=== PATIENT | male | born 1950 | race Caucasian/White ===

== ENCOUNTER 2019-03-08 01:00 | Inpatient (IN) ==
[2019-03-08] MEDS ORDERED: 0.9 % Sodium Chloride 1,000 ML IVC ONE ×3 (01:33→04:02)
[2019-03-08] MEDS ORDERED: Ondansetron 4 MG/2 ML VIAL IVP ONE (02:02)
[2019-03-08] MEDS ORDERED: *HR* Morphine 2 MG/ML SYRINGE IVP ONE (02:02)
--- NOTE | 2019-03-08 02:02 | Emergency Department Note ---
Disposition Clinical Impression: Cellulitis Qualifiers: Site of cellulitis: trunk Site of cellulitis of trunk: chest wall Qualified Code(s): L03.313 - Cellulitis of chest wall Sepsis Qualifiers: Sepsis type: sepsis due to unspecified organism Qualified Code(s): A41.9 - Sepsis, unspecified organism Disposition: Admitted As Inpatient Condition: Fair Referrals: Samantha Conti MD [Primary Care Provider] - Forms: ED Satisfaction Letter Time of Disposition: 04:25 General Adult HPI - General Stated complaint: Fever/Vomiting Time Seen by Provider: 03/08/19 01:06 Source: patient, family Mode of arrival: private vehicle Limitations: no limitations Nursing Notes Reviewed: Yes Vital Signs Reviewed: Yes - History of Present Illness HPI Narrative: 68-year-old male with a past medical history of Waldenstroms macroglobulinemia diagnosed 5 years prior and treated with chemotherapy at that time, with a recent flare in October of this year treated with chemotherapy, with his last session 12 days ago. Patient developed fever, nausea diarrhea approximately 8 PM on March 07. at bedside reports that his temperature was as high as 103 taken orally, weight states that she gave him 3 Tylenol. She states the Tylenol did not seem to affect his fever so they brought him into the department for further evaluation. Patient also had a skin growth removed from the front of his chest yesterday, Thursday, and he has been having a lot of pain associated with the incision site since then. - Related Data Home Medications Medication Instructions Recorded Confirmed Mometasone Furoate [Nasonex] 17 gm NS PRN PRN 11/14/15 02/23/19 Quinapril HCl [Accupril] 10 mg PO DAILY 11/14/15 02/23/19 Ranitidine HCl [Zantac] 150 mg PO DAILY 11/14/15 02/23/19 Ergocalciferol (VITAMIN D2) 2,000 unit PO BID 09/13/18 02/23/19 [Vitamin D2] Previous Rx's Medication Instructions Recorded Cyanocobalamin (B-12) [Vitamin B12] 1,000 mcg PO DAILY #30 tablet 01/16/16 Albuterol Sulfate [Proair Hfa] 2 puff IH QID #1 inh 10/19/17 Loperamide [Imodium] 2 mg PO AD PRN #30 capsule 11/10/18 Ondansetron ODT [Zofran ODT] 4 mg SL Q6HR #20 tab.rapdis 11/10/18 Allergies Allergy/AdvReac Type Severity Reaction Status Date / Time egg Allergy Difficulty Verified 03/08/19 01:52 Breathing iodine Allergy Difficulty Verified 03/08/19 01:52 Breathing Review of Systems: All systems ED: reviewed and negative except as stated. Constitutional: Reports: fever, chills ENT ED: Denies: ear pain, throat pain Cardiovascular: Denies: chest pain, palpitations Respiratory: Denies: cough, dyspnea Gastrointestinal: Denies: abdominal pain, vomiting, constipation Reports: nausea, diarrhea Genitourinary: Denies: urgency, dysuria, frequency Musculoskeletal: Denies: back pain, neck pain Integumentary: Denies: rash, abrasion Neurological: Denies: headache, weakness, numbness, paresthesias Psychiatric: Denies: anxiety, depression Endocrine: Denies: fatigue, heat or cold intolerance Hematological/Lymphatic: Denies: easy bleeding, easy bruising Allergic/Immunologic: Denies: facial swelling, urticaria Past Medical History - Past Medical History Attestation: Yes The following information was validated with the patient. Medical history: Reports: arthritis, cancer, diabetes, GERD, hypertension Surgical history: Reports: orthopedic, other Psychiatric history: Reports: no psych history - Social History Smoking Status: Former smoker Smokeless Tobacco Status: No Alcohol use: Reports: none Drug use: Reports: none Physical Exam General: A&O x 3. Appears sick but not toxic. Well developed, well nourished. Head: atraumatic, normocephalic. ENT: No conjunctival injection, no scleral icterus. PERRLA. EOMI. Oropharynx non- erythematous. mucous membranes tacky. Neuro: No focal deficits, no speech deficit, no facial droop, mentating well. BUE/BLE Str 5/5. Pulm: Diminished lung sounds on the left, clear otherwise. Cardio: Tachycardia. Chest: 4 inch surgical scar with erythema, serosanguinous drainage, tender to pa lpation. Abd: Soft, non-distended. Normoactive bowel sounds. Tender to palpation in epigastric area. No guarding. Non rigid. Extremities: Radial pulses 2+ todd, dorsalis pedis/posterior tibialis 2+ todd. No LE edema. No cyanosis, clubbing. Skin: hot, dry, intact. No rashes. Psych: Appropriate mood and affect. Answers questions appropriately. Cooperative with exam. Course Course Narrative: Differential diagnosis includes but is not limited to post surgical infection, pneumonia, colitis Workup will include: CBC, BMP, lactic acid, blood cultures, chest x-ray, EKG, CT of the chest abdomen and pelvis. Suspect admission. Vital Signs Temperature 102.6 F H 03/08/19 01:53 Pulse Rate 128 03/08/19 01:53 Respiratory Rate 24 03/08/19 01:53 Blood Pressure 124/74 03/08/19 01:53 O2 Sat by Pulse Oximetry 95 03/08/19 01:53 Temperature 102.6 F H 03/08/19 01:53 Pulse Rate 118 03/08/19 04:13 Respiratory Rate 18 03/08/19 04:13 Blood Pressure 91/60 03/08/19 04:13 O2 Sat by Pulse Oximetry 96 03/08/19 04:13 Oxygen Delivery Oxygen Delivery Room Air Medical Decision Making - MDM Narrative Medical decision making narrative: Patient's chest CT was concerning for chest wall cellulitis, white blood cell count was not elevated, however with history of recent chemotherapy, this does not rule out infection. Lactic acid was 1.0. Phosphorus was low at 1.0, so was repleted with Neutra-Phos while in the department. Patient was given Zosyn and vancomycin. He was given 2 L of fluids but his blood pressure remained labile so he was given a third liter. Patient was admitted to the hospitalist Dr. Ortiz, who agreed to accept the patient to his service. Patient was given an opportunity to ask questions at bedside and all of their concerns were addres sed. Patient verbalized understanding and agreement with plan of care. Pt remained stable while in the department. - Medical Records Medical records reviewed: Yes I reviewed the patient's medical records. - Lab Data Lab results reviewed: Yes I reviewed the patient's lab results. Result diagrams: 03/08/19 01:59 03/08/19 01:59 Lab Results 03/08/19 03/08/19 03/08/19 Range/Units 01:59 01:59 01:59 WBC 4.5 (4.3-11.1) K/mcL RBC 3.72 L (4.19-5.50) M/mcL Hgb 11.3 L (12.9-16.9) g/dL Hct 34.9 L (37.5-50.1) % MCV 93.8 (83.0-100.0) fL MCH 30.4 (28.0-33.3) pg MCHC 32.4 (31.6-35.5) g/dL RDW 14.2 (11.5-14.5) % Plt Count 129 L (140-400) K/mcL MPV 9.3 L (9.4-12.4) fL Seg Neutrophils % 84.0 % Band Neutrophils % 8.0 H (0-4) % Lymphocytes % 2.0 % Monocytes % 6.0 % Neutrophils # 4.1 (1.6-8.9) K/mcL Lymphocytes # 0.1 L (0.6-4.6) K/mcL Monocytes # 0.3 (0.0-1.3) K/mcL Platelet Estimate Decreased L (Normal) PT 12.3 H (9.4-12.1) Seconds INR 1.1 APTT 30.2 (26.0-36.0) Seconds Sodium 137 (136-145) mEq/L Potassium 3.9 (3.5-5.1) mEq/L Chloride 102 (98-107) mEq/L Carbon Dioxide 22 L (23-29) mEq/L BUN 32 H (8-23) mg/dL Creatinine 1.36 H (0.70-1.30) mg/dL Est GFR ( Amer) > 60 (> 60) Est GFR (Non-Af Amer) 52 L (> 60) BUN/Creatinine Ratio 24 (6-26) Glucose 143 H (70-105) mg/dL Calculated Osmolality 293 (280-300) Lactic Acid (0.5-2.2) mmol/L Calcium 9.0 (8.6-10.3) mg/dL Phosphorus 1.0 L* (2.7-4.5) mg/dL Magnesium 1.7 (1.6-2.6) mg/dL Total Bilirubin 0.5 (0.3-1.0) mg/dL Direct Bilirubin 0.1 (0.0-0.2) mg/dL Indirect Bilirubin 0.4 (0.0-1.2) mg/dL AST 34 (13-39) Units/L ALT 39 (7-52) Units/L Alkaline Phosphatase 75 (34-104) Units/L Troponin I < 0.03 (< 0.04) ng/mL Serum Total Protein 6.5 (6.4-8.9) g/dL Albumin 4.1 (3.5-5.7) g/dL Globulin 2.4 (2.4-3.5) g/dL Albumin/Globulin Ratio 1.7 (1.1-2.2) Lipase 25 (11-82) Units/L 03/08/19 Range/Units 01:59 WBC (4.3-11.1) K/mcL RBC (4.19-5.50) M/mcL Hgb (12.9-16.9) g/dL Hct (37.5-50.1) % MCV (83.0-100.0) fL MCH (28.0-33.3) pg MCHC (31.6-35.5) g/dL RDW (11.5-14.5) % Plt Count (140-400) K/mcL MPV (9.4-12.4) fL Seg Neutrophils % % Band Neutrophils % (0-4) % Lymphocytes % % Monocytes % % Neutrophils # (1.6-8.9) K/mcL Lymphocytes # (0.6-4.6) K/mcL Monocytes # (0.0-1.3) K/mcL Platelet Estimate (Normal) PT (9.4-12.1) Seconds INR APTT (26.0-36.0) Seconds Sodium (136-145) mEq/L Potassium (3.5-5.1) mEq/L Chloride (98-107) mEq/L Carbon Dioxide (23-29) mEq/L BUN (8-23) mg/dL Creatinine (0.70-1.30) mg/dL Est GFR ( Amer) (> 60) Est GFR (Non-Af Amer) (> 60) BUN/Creatinine Ratio (6-26) Glucose (70-105) mg/dL Calculated Osmolality (280-300) Lactic Acid 1.0 (0.5-2.2) mmol/L Calcium (8.6-10.3) mg/dL Phosphorus (2.7-4.5) mg/dL Magnesium (1.6-2.6) mg/dL Total Bilirubin (0.3-1.0) mg/dL Direct Bilirubin (0.0-0.2) mg/dL Indirect Bilirubin (0.0-1.2) mg/dL AST (13-39) Units/L ALT (7-52) Units/L Alkaline Phosphatase (34-104) Units/L Troponin I (< 0.04) ng/mL Serum Total Protein (6.4-8.9) g/dL Albumin (3.5-5.7) g/dL Globulin (2.4-3.5) g/dL Albumin/Globulin Ratio (1.1-2.2) Lipase (11-82) Units/L - Radiology Data Radiology results reviewed: Yes I reviewed the patient's radiology results. Chest X-Ray 03/08/19 01:34 IMPRESSION: No acute cardiopulmonary process. D/ / Moises Muller MD / Moises Muller MD Interpreting Provider: Moises Muller MD Abdomen/Pelvis CT 03/08/19 02:09 IMPRESSION: Mild soft tissue stranding and gas along the anterior chest wall. No drainable fluid collection. No acute cardiopulmonary findings. Decreased periaortic and aortoiliac lymphadenopathy and inflammatory stranding. Cholelithiasis without evidence of acute cholecystitis. D/ / Preet Iyer / Preet Iyer Interpreting Provider: Preet Iyer Chest CT 03/08/19 02:09 IMPRESSION: Mild soft tissue stranding and gas along the anterior chest wall. No drainable fluid collection. No acute cardiopulmonary findings. Decreased periaortic and aortoiliac lymphadenopathy and inflammatory stranding. Cholelithiasis without evidence of acute cholecystitis. D/ / Preet Iyer / Preet Iyer Interpreting Provider: Preet Iyer - EKG Data EKG #1 EKG attestation: Yes I reviewed and interpreted this EKG. EKG results narrative: Heart rate 127, rhythm sinus tachycardia, axis normal. NV 152, QRS 102, QTC 6:30 and prolonged. No clinically relevant ST elevation or depression. Repeat EKG at 421: Heart rate 118, rhythm sinus tachycardia, axis normal. NV 187 and prolonged, QRS 100, QTc 526 and prolonged, but improved from previous. No clinically significant ST elevation or depression. No LVH.
[2019-03-08] MEDS ORDERED: Piperacillin/Tazobactam 3.375 GM in Water for inj. (sterile) 20 ML 20 ML IVP ONE (02:05)
[2019-03-08] MEDS ORDERED: Ibuprofen 600 MG TABLET PO ONE (02:10)
[2019-03-08 02:14] LABS: Hematocrit 34.9 % (37.5-50.1); Hemoglobin 11.3 g/dL (12.9-16.9); Mean Corpuscular HGB Conc 32.4 g/dL (31.6-35.5); Mean Corpuscular Hemoglobin 30.4 pg (28.0-33.3); Mean Corpuscular Volume 93.8 fL (83.0-100.0); Mean Platelet Volume 9.3 fL (9.4-12.4); Platelet Count 129 K/mcL (140-400); Red Blood Count 3.72 M/mcL (4.19-5.50); Red Cell Distribution Width 14.2 % (11.5-14.5)
[2019-03-08 02:21] LABS: INR 1.1; Prothrombin Time 12.3 Seconds (9.4-12.1)
[2019-03-08 02:24] LABS: Activated Partial Thrombo Time 30.2 Seconds (26.0-36.0)
[2019-03-08 02:42] LABS: Alanine Aminotransferase 39 Units/L (7-52); Albumin 4.1 g/dL (3.5-5.7); Albumin/Globulin Ratio 1.7 (1.1-2.2); Alkaline Phosphatase 75 Units/L (34-104); Aspartate Amino Transferase 34 Units/L (13-39); BUN/Creatinine Ratio 24 (6-26); Bilirubin,Direct 0.1 mg/dL (0.0-0.2); Bilirubin,Indirect 0.4 mg/dL (0.0-1.2); Bilirubin,Total 0.5 mg/dL (0.3-1.0); Blood Urea Nitrogen 32 mg/dL (8-23); Carbon Dioxide 22 mEq/L (23-29); Chloride 102 mEq/L (98-107); Globulin 2.4 g/dL (2.4-3.5); Glucose 143 mg/dL (70-105); Lipase 25 Units/L (11-82); Magnesium 1.7 mg/dL (1.6-2.6); Osmolality,Calculated 293 (280-300); Potassium 3.9 mEq/L (3.5-5.1); Sodium 137 mEq/L (136-145); Total Protein 6.5 g/dL (6.4-8.9); Troponin I < 0.03 ng/mL (< 0.04); eGFR For Non-African Americans 52 (> 60)
[2019-03-08 02:47] LABS: Lymphocytes # 0.1 K/mcL (0.6-4.6); Monocytes # 0.3 K/mcL (0.0-1.3); Neutrophils # 4.1 K/mcL (1.6-8.9); Platelet Estimate Decreased (Normal)
--- NOTE | 2019-03-08 03:29 | Emergency Department Note ---
Disposition Clinical Impression: Cellulitis Qualifiers: Site of cellulitis: trunk Site of cellulitis of trunk: chest wall Qualified Code(s): L03.313 - Cellulitis of chest wall Sepsis Qualifiers: Sepsis type: sepsis due to unspecified organism Qualified Code(s): A41.9 - Sepsis, unspecified organism Disposition: Admitted As Inpatient Condition: Good Referrals: Samantha Conti MD [Primary Care Provider] - General Adult HPI - General Chief complaint: ED Fever Stated complaint: Fever/Vomiting Time Seen by Provider: 03/08/19 01:06 Source: patient, family Mode of arrival: private vehicle Limitations: no limitations - History of Present Illness Pain Scale: 6 - Related Data Home Medications Medication Instructions Recorded Confirmed Mometasone Furoate [Nasonex] 17 gm NS PRN PRN 11/14/15 02/23/19 Quinapril HCl [Accupril] 10 mg PO DAILY 11/14/15 02/23/19 Ranitidine HCl [Zantac] 150 mg PO DAILY 11/14/15 02/23/19 Ergocalciferol (VITAMIN D2) 2,000 unit PO BID 09/13/18 02/23/19 [Vitamin D2] Previous Rx's Medication Instructions Recorded Cyanocobalamin (B-12) [Vitamin B12] 1,000 mcg PO DAILY #30 tablet 01/16/16 Albuterol Sulfate [Proair Hfa] 2 puff IH QID #1 inh 10/19/17 Loperamide [Imodium] 2 mg PO AD PRN #30 capsule 11/10/18 Ondansetron ODT [Zofran ODT] 4 mg SL Q6HR #20 tab.rapdis 11/10/18 Allergies Allergy/AdvReac Type Severity Reaction Status Date / Time egg Allergy Difficulty Verified 03/08/19 01:52 Breathing iodine Allergy Difficulty Verified 03/08/19 01:52 Breathing Past Medical History - Past Medical History Medical history: Reports: arthritis, cancer, diabetes, GERD, hypertension Surgical history: Reports: orthopedic, other Psychiatric history: Reports: no psych history - Social History Smoking Status: Former smoker Smokeless Tobacco Status: No Alcohol use: Reports: none Drug use: Reports: none Physical Exam - General Limitations: no limitations General appearance: alert Course Vital Signs Temperature 102.6 F H 03/08/19 01:53 Pulse Rate 128 03/08/19 01:53 Respiratory Rate 24 03/08/19 01:53 Blood Pressure 124/74 03/08/19 01:53 O2 Sat by Pulse Oximetry 95 03/08/19 01:53 Temperature 102.6 F H 03/08/19 01:53 Pulse Rate 120 03/08/19 03:06 Respiratory Rate 18 03/08/19 03:06 Blood Pressure 108/64 03/08/19 03:06 O2 Sat by Pulse Oximetry 97 03/08/19 03:06 Oxygen Delivery Oxygen Delivery Room Air Medical Decision Making - Lab Data Result diagrams: 03/08/19 01:59 03/08/19 01:59 Lab Results 03/08/19 03/08/19 03/08/19 Range/Units 01:59 01:59 01:59 WBC 4.5 (4.3-11.1) K/mcL RBC 3.72 L (4.19-5.50) M/mcL Hgb 11.3 L (12.9-16.9) g/dL Hct 34.9 L (37.5-50.1) % MCV 93.8 (83.0-100.0) fL MCH 30.4 (28.0-33.3) pg MCHC 32.4 (31.6-35.5) g/dL RDW 14.2 (11.5-14.5) % Plt Count 129 L (140-400) K/mcL MPV 9.3 L (9.4-12.4) fL Seg Neutrophils % 84.0 % Band Neutrophils % 8.0 H (0-4) % Lymphocytes % 2.0 % Monocytes % 6.0 % Neutrophils # 4.1 (1.6-8.9) K/mcL Lymphocytes # 0.1 L (0.6-4.6) K/mcL Monocytes # 0.3 (0.0-1.3) K/mcL Platelet Estimate Decreased L (Normal) PT 12.3 H (9.4-12.1) Seconds INR 1.1 APTT 30.2 (26.0-36.0) Seconds Sodium 137 (136-145) mEq/L Potassium 3.9 (3.5-5.1) mEq/L Chloride 102 (98-107) mEq/L Carbon Dioxide 22 L (23-29) mEq/L BUN 32 H (8-23) mg/dL Creatinine 1.36 H (0.70-1.30) mg/dL Est GFR ( Amer) > 60 (> 60) Est GFR (Non-Af Amer) 52 L (> 60) BUN/Creatinine Ratio 24 (6-26) Glucose 143 H (70-105) mg/dL Calculated Osmolality 293 (280-300) Lactic Acid (0.5-2.2) mmol/L Calcium 9.0 (8.6-10.3) mg/dL Phosphorus 1.0 L* (2.7-4.5) mg/dL Magnesium 1.7 (1.6-2.6) mg/dL Total Bilirubin 0.5 (0.3-1.0) mg/dL Direct Bilirubin 0.1 (0.0-0.2) mg/dL Indirect Bilirubin 0.4 (0.0-1.2) mg/dL AST 34 (13-39) Units/L ALT 39 (7-52) Units/L Alkaline Phosphatase 75 (34-104) Units/L Troponin I < 0.03 (< 0.04) ng/mL Serum Total Protein 6.5 (6.4-8.9) g/dL Albumin 4.1 (3.5-5.7) g/dL Globulin 2.4 (2.4-3.5) g/dL Albumin/Globulin Ratio 1.7 (1.1-2.2) Lipase 25 (11-82) Units/L 03/08/19 Range/Units 01:59 WBC (4.3-11.1) K/mcL RBC (4.19-5.50) M/mcL Hgb (12.9-16.9) g/dL Hct (37.5-50.1) % MCV (83.0-100.0) fL MCH (28.0-33.3) pg MCHC (31.6-35.5) g/dL RDW (11.5-14.5) % Plt Count (140-400) K/mcL MPV (9.4-12.4) fL Seg Neutrophils % % Band Neutrophils % (0-4) % Lymphocytes % % Monocytes % % Neutrophils # (1.6-8.9) K/mcL Lymphocytes # (0.6-4.6) K/mcL Monocytes # (0.0-1.3) K/mcL Platelet Estimate (Normal) PT (9.4-12.1) Seconds INR APTT (26.0-36.0) Seconds Sodium (136-145) mEq/L Potassium (3.5-5.1) mEq/L Chloride (98-107) mEq/L Carbon Dioxide (23-29) mEq/L BUN (8-23) mg/dL Creatinine (0.70-1.30) mg/dL Est GFR ( Amer) (> 60) Est GFR (Non-Af Amer) (> 60) BUN/Creatinine Ratio (6-26) Glucose (70-105) mg/dL Calculated Osmolality (280-300) Lactic Acid 1.0 (0.5-2.2) mmol/L Calcium (8.6-10.3) mg/dL Phosphorus (2.7-4.5) mg/dL Magnesium (1.6-2.6) mg/dL Total Bilirubin (0.3-1.0) mg/dL Direct Bilirubin (0.0-0.2) mg/dL Indirect Bilirubin (0.0-1.2) mg/dL AST (13-39) Units/L ALT (7-52) Units/L Alkaline Phosphatase (34-104) Units/L Troponin I (< 0.04) ng/mL Serum Total Protein (6.4-8.9) g/dL Albumin (3.5-5.7) g/dL Globulin (2.4-3.5) g/dL Albumin/Globulin Ratio (1.1-2.2) Lipase (11-82) Units/L Attestation Statement - Attestation Attestation: I examined this patient and my medical decision-making was reviewed with the Resident Physician. I agree with the documented findings, disposition and treatment plan as described except to the extent set forth below. 68 year old male presents to the eD with complaints of feer and weakness and vomitting and has been experiencing diarrhea in addition to this. He most recently had a skin lesion removed by Dr. Diallo [facility] surgeon removed it a few days ago and he also immunocomproised as he is recieeing chemo for waldenstrom macroglobunemia. Patient meets SIRS criteria and the CT scans confrims cellulitis without drainable abscess formation. We have started IVF ABX and given 30ml/kg IVF and will admit to medicine
[2019-03-08 05:14] LABS: ABG Base Excess -6 mEq/L (-2 to 3); ABG HCO3 19 mEq/L (21-27); ABG Oxygen Saturation 96 % (95-98); ABG PCO2 34 mmHg (35-45); ABG PH 7.36 pH Units (7.32-7.45); ABG PO2 86 mmHg (85-104); ABG TCO2 20 mEq/L (20-26)
--- NOTE | 2019-03-08 07:36 | Internal Med History&Physical ---
<Willie Schaefer - Last Filed: 03/08/19 10:37> Date of Encounter: 03/08/19 Time of Encounter: 07:27 Internal Medicine - H&P: HPI Chief complaint: Fever Admitted From: Emergency Dept History of present illness: Mr. 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 Patient initially had a squamous cell carcinoma skin lesion removed from his anterior chest removed in November 2018, this incision site was further resected yesterday morning by Dr. Diallo [facility] surgeon due to rapid recurrence of the lesion while on current immunotherapy. Patient reports associated pain at the incision site and developed a fever temperature 103 F after the procedure. He tried Tylenol at home without relief. Patient's final cycle of palliative chemotherapy treatment was 12 days ago. In the ED, patient met sepsis criteria with fever temp 102.6 F, tachycardia 128, respiratory rate 24, and CT chest revealed mild soft tissue stranding and gas along the anterior chest wall with no drainable fluid collection. CT abdomen/pe lvis was negative for colitis. Patient was started on broad-spectrum IV antibiotics and sepsis fluid bolus. Past Med Surg Social Fam HX - Past Medical History Medical history: arthritis, cancer, diabetes, GERD, hypertension Psychiatric history: no psych history - Past Surgical History Surgical History: orthopedic, other Additional surgical history: sinus sx, - Social History Smoking Status: Former smoker Smokeless Tobacco Status: No Alcohol use: none Drug use: none - Family History Mother Living Status: Father Living Status: Hx Family Cardiac Disorders: Yes Internal Medicine - H&P: Meds Quinapril HCl [Accupril] 10 mg PO DAILY 11/14/15 [History] Cyanocobalamin (B-12) [Vitamin B12] 1,000 mcg PO DAILY #30 tablet 01/16/16 [Rx] Ergocalciferol (VITAMIN D2) [Vitamin D2] 4,000 unit PO DAILY 09/13/18 [History] Cetirizine HCl [Zyrtec] 10 mg PO DAILY 03/08/19 [History] Fluticasone Propionate Nasal [Flonase] 2 spray NS DAILY 03/08/19 [History] Montelukast [Singulair] 10 mg PO DAILY 03/08/19 [History] Ondansetron HCl 4 mg PO Q6H PRN 03/08/19 [History] raNITIdine HCl [Ranitidine HCl] 150 mg PO BID 03/08/19 [History] Allergy/AdvReac Type Severity Reaction Status Date / Time egg Allergy Difficulty Verified 03/08/19 09:15 Breathing iodine Allergy Difficulty Verified 03/08/19 09:15 Breathing shellfish derived Allergy See Verified 03/08/19 09:15 Comments All Systems PM: A 10-system review of systems was performed and is negative for pertinent findings except as documented above in the HPI. - Constitutional Constitutional: chills, fever(s), weakness, no night sweats - EENT Eyes: no change in vision, no discharge, no pain, no photophobia Ears: no ear discharge, no ear pain, no tinnitus Nose, mouth and throat: neck pain, no dysphagia, no nasal discharge, no sore throat - Cardiovascular Cardiovascular ROS IM: chest pain (anterior chest incision site), no diaphoresis, no dyspnea, no lightheadedness, no palpitations, no syncope - Respiratory Respiratory: no cough, no dyspnea, no wheezing, no excessive phlegm production - Gastrointestinal Gastrointestinal: diarrhea, nausea, vomiting, no abdominal pain, no hematemesis, no hematochezia, no melena - Genitourinary Genitourinary ROS male: no urinary frequency, no urinary urgency - Musculoskeletal Musculoskeletal ROS IM: no numbness, no tingling - Integumentary Integumentary IM: erythema, new lesions - Neurological Neurological ROS: no confusion, no convulsions, no focal weakness, no numbness, no tingling, no tremor(s) - Psychiatric Psychiatric: no anxiety, no depression - Endocrine Endocrine IM: no polydipsia, no polyphagia, no polyuria - Hematologic/Lymphatic Hematologic/Lymphatic: no easy bruising - Constitutional Vitals: Temp Pulse Resp BP Pulse Ox 98.6 F 99 20 96/62 99 03/08/19 07:26 03/08/19 07:26 03/08/19 07:26 03/08/19 07:26 03/08/19 07:26 General appearance: Present: cooperative, A&O X 3, pleasant, no acute distress, answers questions appropriately Exam: awake - Head Head exam: Present: atraumatic, normocephalic - Eye Eye exam: Present: EOMI, conjuntiva pink, sclera anicteric - ENT ENT exam: Present: mucous membranes dry, normal oropharynx - Neck Neck exam general surgery: Present: supple, trachea midline. Absent: lymphadenopathy - Respiratory Respiratory exam: Present: CTAB. Absent: accessory muscle use, rales, rhonchi, wheezes - Cardiovascular Cardiovascular exam: Present: RRR, +S1, +S2. Absent: diastolic murmur, gallop, rubs, systolic murmur Additional comments: Anterior chest wall tenderness at the incision site - GI/Abdominal GI/Abdominal exam: Present: normal bowel sounds, soft, no peritoneal signs. Absent: distended, tenderness - Extremities Exam Extremities exam: Present: normal capillary refill, warm, radial pulses palpable and symmetrical. Absent: calf tenderness, cyanotic, pedal edema - Incison Incision: Present: clean and dry, intact, erythema Comments: Severe tenderness with bandage manipulation, no purulent drainage - Neurological Exam Neurological exam: Present: CN II-XII intact, oriented X3, no focal deficits. Absent: pronater drift, facial droop, speech deficit - Skin Skin exam: Present: erythema, intact Internal Med - H&P Results - Labs CBC & Chem 7: 03/08/19 09:14 03/08/19 09:14 Labs: Short CBC 03/08/19 Range/Units 01:59 WBC 4.5 (4.3-11.1) K/mcL Hgb 11.3 L (12.9-16.9) g/dL Hct 34.9 L (37.5-50.1) % Plt Count 129 L (140-400) K/mcL Neutrophils # 4.1 (1.6-8.9) K/mcL BMP 03/08/19 01:59 Sodium 137 Potassium 3.9 Chloride 102 Carbon Dioxide 22 L BUN 32 H Creatinine 1.36 H Glucose 143 H Calcium 9.0 Cardiac Enzymes 03/08/19 Range/Units 01:59 Troponin I < 0.03 (< 0.04) ng/mL Liver Function 03/08/19 Range/Units 01:59 Total Bilirubin 0.5 (0.3-1.0) mg/dL Direct Bilirubin 0.1 (0.0-0.2) mg/dL AST 34 (13-39) Units/L ALT 39 (7-52) Units/L Alkaline Phosphatase 75 (34-104) Units/L Albumin 4.1 (3.5-5.7) g/dL - ABG Interpretation ABG results: 03/08/19 05:12 ABG pH 7.36 ABG pCO2 34 L ABG pO2 86 ABG HCO3 19 L ABG Total CO2 20 ABG O2 Saturation 96 ABG Base Excess -6 L - Pulse Oximetry Interpretation Digit-Finger O2 Sat by Pulse Oximetry: 99 (On ambient air) Actions taken: none - Impressions ITS Impressions Chest X-Ray 03/08/19 01:34 IMPRESSION: No acute cardiopulmonary process. D/ / Moises Muller MD / Moises Muller MD Interpreting Provider: Moises Muller MD Abdomen/Pelvis CT 03/08/19 02:09 IMPRESSION: Mild soft tissue stranding and gas along the anterior chest wall. No drainable fluid collection. No acute cardiopulmonary findings. Decreased periaortic and aortoiliac lymphadenopathy and inflammatory stranding. Cholelithiasis without evidence of acute cholecystitis. D/ / Preet Iyer / Preet Iyer Interpreting Provider: Preet Iyer Chest CT 03/08/19 02:09 IMPRESSION: Mild soft tissue stranding and gas along the anterior chest wall. No drainable fluid collection. No acute cardiopulmonary findings. Decreased periaortic and aortoiliac lymphadenopathy and inflammatory stranding. Cholelithiasis without evidence of acute cholecystitis. D/ / Preet Iyer / Preet Iyer Interpreting Provider: Preet Iyer - Assessment and Plan (1) Sepsis Current Visit: Yes Status: Acute Assessment and plan: Patient met sepsis criteria with fever temp 102.6 F, tachycardia 128, resp iratory rate 24, and CT chest revealed mild soft tissue stranding and gas along the anterior chest wall with no drainable fluid collection. Patient is status post skin lesion resection 03/07/19. Patient complains of nausea, vomiting, diarrhea while on immunotherapy suppression. CT abdomen pelvis did not show evidence of colitis. Stool panel pending. Patient does not meet criteria for neutropenic fever (absolute neutrophil count 4140). Patient was started on broad-spectrum IV antibiotics and sepsis fluid bolus. Lactic acid level 1, repeat lactic acid 1.5 Blood cultures pending Continue broad-spectrum IV vancomycin and Zosyn De-escalate antibiotics based on culture results. Consider ID consult if patient remains febrile. Qualifiers: Sepsis type: sepsis due to unspecified organism Qualified Code(s): A41.9 - Sepsis, unspecified organism (2) Cellulitis Current Visit: Yes Status: Suspected Assessment and plan: Patient initially had a squamous cell carcinoma skin lesion removed from his anterior chest removed in November 2018, this incision site was further resected yesterday morning by tech brazer tester Dr. Jermaine Diallo, [facility] surgeon. Patient reports associated pain at the incision site and developed a fever temperature 103 F after the procedure. CT chest revealed mild soft tissue stranding and gas along the anterior chest wall with no drainable fluid collection. Case discussed with Dr. Diallo, who recommended continuing IV antibiotic therapy and will re-evaluated the patient during current hospitalization. Condition remains guarded given acute febrile reaction, sepsis, and current immunosuppression. Continue pain control. Qualifiers: Site of cellulitis: trunk Site of cellulitis of trunk: chest wall Qualified Code(s): L03.313 - Cellulitis of chest wall (3) MEG (acute kidney injury) Current Visit: Yes Status: Acute Assessment and plan: MEG likely secondary to dehydration and BARBARA inhibitor use. Hold home BARBARA inhibitor Continue IV fluids Continue monitoring. (4) Hypertension Current Visit: Yes Status: Acute Assessment and plan: Blood pressure controlled. Continue monitoring Qualifiers: Hypertension type: essential hypertension Qualified Code(s): I10 - Essential (primary) hypertension (5) Malignant lymphoplasmacytic lymphoma Current Visit: No Status: Chronic Assessment and plan: Patient is on palliative chemotherapy. Completed 4 cycles on 02/23/2019, managed by [facility], Dr. Haider. Patient does not meet criteria for neutropenic fever (absolute neutrophil count 4140). Oncology consulted. (6) Hypophosphatemia Current Visit: Yes Status: Acute Assessment and plan: Phosphorus level 1.0 --> 3.2, supplemented phosphorus Continue monitoring (7) DVT prophylaxis Current Visit: No Status: Acute Assessment and plan: Heparin subcutaneous TID (8) Diabetes mellitus type 2 in nonobese Current Visit: Yes Status: Acute Assessment and plan: Diet controlled. Hgb A1c 5.7 on 12/15/18. Continue monitoring. - Time Spent With Patient Total time spent is greater than 50% in coordination of care (as documented) at patient's floor/unit and/or counseling patient: Sepsis Reassessment Note - Evaluation Sepsis Screen: No Definite Risk Current Stage of Sepsis: sepsis Possible Source of Sepsis: unknown - Focused Exam Date of Encounter: 03/08/19 Time of Encounter: 07:15 Vital Signs: Vital Signs Temp Pulse Resp BP Pulse Ox 03/08/19 09:34 108/64 03/08/19 07:26 98.6 F 99 20 96/62 99 03/08/19 05:57 99.3 F 108 18 98/65 95 03/08/19 05:16 95 03/08/19 04:44 100.8 F H 112 22 94/55 95 03/08/19 04:13 118 18 91/60 96 03/08/19 03:06 120 18 108/64 97 03/08/19 01:53 102.6 F H 128 24 124/74 95 Respiratory Exam: Present: CTA bilaterally Cardiovascular Exam: Present: tachycardia Capillary Refill: < 2 seconds Peripheral Pulse Strength: 3+ normal Peripheral Pulse Location: Radial Skin Exam: normal turgor <Rebecca Flower - Last Filed: 03/08/19 12:08> Date of Encounter: 03/08/19 Internal Medicine - H&P: HPI History of present illness: Mr. Craft is a 68 year old male Past Med Surg Social Fam HX - Additional Family History Additional family history: Family history reviewed and non contributory All Systems PM: A 10-system review of systems was performed and is negative for pertinent findings except as documented above in the HPI. - Constitutional Vitals: Temp Pulse Resp BP Pulse Ox 98.3 F 79 18 87/56 98 03/08/19 10:52 03/08/19 10:52 03/08/19 10:52 03/08/19 10:52 03/08/19 10:52 Internal Med - H&P Results - Labs CBC & Chem 7: 03/08/19 09:14 03/08/19 09:14 Labs: Short CBC 03/08/19 03/08/19 Range/Units 01:59 09:14 WBC 4.5 7.7 D (4.3-11.1) K/mcL Hgb 11.3 L 10.2 L (12.9-16.9) g/dL Hct 34.9 L 31.9 L (37.5-50.1) % Plt Count 129 L 113 L (140-400) K/mcL Neutrophils # 4.1 6.5 (1.6-8.9) K/mcL BMP 03/08/19 03/08/19 01:59 09:14 Sodium 137 134 L Potassium 3.9 4.3 Chloride 102 110 H Carbon Dioxide 22 L 20 L BUN 32 H 25 H Creatinine 1.36 H 1.38 H Glucose 143 H 120 H Calcium 9.0 8.1 L Cardiac Enzymes 03/08/19 Range/Units 01:59 Troponin I < 0.03 (< 0.04) ng/mL Liver Function 03/08/19 Range/Units 01:59 Total Bilirubin 0.5 (0.3-1.0) mg/dL Direct Bilirubin 0.1 (0.0-0.2) mg/dL AST 34 (13-39) Units/L ALT 39 (7-52) Units/L Alkaline Phosphatase 75 (34-104) Units/L Albumin 4.1 (3.5-5.7) g/dL - ABG Interpretation ABG results: 03/08/19 05:12 ABG pH 7.36 ABG pCO2 34 L ABG pO2 86 ABG HCO3 19 L ABG Total CO2 20 ABG O2 Saturation 96 ABG Base Excess -6 L - Impressions ITS Impressions Chest X-Ray 03/08/19 01:34 IMPRESSION: No acute cardiopulmonary process. D/ / Moises Muller MD / Moises Muller MD Interpreting Provider: Moises Muller MD Abdomen/Pelvis CT 03/08/19 02:09 IMPRESSION: Mild soft tissue stranding and gas along the anterior chest wall. No drainable fluid collection. No acute cardiopulmonary findings. Decreased periaortic and aortoiliac lymphadenopathy and inflammatory stranding. Cholelithiasis without evidence of acute cholecystitis. D/ / Preet Iyer / Preet Iyer Interpreting Provider: Preet Iyer Chest CT 03/08/19 02:09 IMPRESSION: Mild soft tissue stranding and gas along the anterior chest wall. No drainable fluid collection. No acute cardiopulmonary findings. Decreased periaortic and aortoiliac lymphadenopathy and inflammatory stranding. Cholelithiasis without evidence of acute cholecystitis. D/ / Preet Iyer / Preet Iyer Interpreting Provider: Preet Iyer - Assessment and Plan (1) Malignant lymphoplasmacytic lymphoma Current Visit: No Status: Chronic (2) DVT prophylaxis Current Visit: No Status: Acute (3) Cellulitis Current Visit: Yes Status: Suspected Qualifiers: Site of cellulitis: trunk Site of cellulitis of trunk: chest wall Qualified Code(s): L03.313 - Cellulitis of chest wall (4) Sepsis Current Visit: Yes Status: Acute Qualifiers: Sepsis type: sepsis due to unspecified organism Qualified Code(s): A41.9 - Sepsis, unspecified organism (5) MEG (acute kidney injury) Current Visit: Yes Status: Acute (6) Hypophosphatemia Current Visit: Yes Status: Acute (7) Hypertension Current Visit: Yes Status: Acute Qualifiers: Hypertension type: essential hypertension Qualified Code(s): I10 - Essential (primary) hypertension (8) Diabetes mellitus type 2 in nonobese Current Visit: Yes Status: Acute - Time Spent With Patient Total time spent is greater than 50% in coordination of care (as documented) at patient's floor/unit and/or counseling patient: Sepsis Reassessment Note - Focused Exam Vital Signs: Vital Signs Temp Pulse Resp BP Pulse Ox 03/08/19 10:52 98.3 F 79 18 87/56 98 03/08/19 09:34 108/64 03/08/19 07:26 98.6 F 99 20 96/62 99 03/08/19 05:57 99.3 F 108 18 98/65 95 03/08/19 05:16 95 03/08/19 04:44 100.8 F H 112 22 94/55 95 03/08/19 04:13 118 18 91/60 96 03/08/19 03:06 120 18 108/64 97 03/08/19 01:53 102.6 F H 128 24 124/74 95
[2019-03-08] MEDS ORDERED: D5% in Water 1,000 ML IVC PRN (07:58)
[2019-03-08] MEDS ORDERED: Ondansetron 4 MG/2 ML VIAL IVP PRN (07:58)
[2019-03-08] MEDS ORDERED: Dextrose Gel 15 GM/37.5 ML TUBE PO PRN ×2 (07:58)
[2019-03-08] MEDS ORDERED: *HR* Dextrose 50 % in Water (Syg) 50 ML SYRINGE IVP PRN (07:58)
[2019-03-08] MEDS ORDERED: *HR* HYDROcodone/Acet 5/325 mg TABLET PO PRN (07:58)
[2019-03-08] MEDS ORDERED: *HR* OxyCODONE Immed Rel 5 MG TABLET PO PRN (07:58)
[2019-03-08] MEDS ORDERED: Naloxone 0.4 MG/ML INJ IVP PRN (07:58)
[2019-03-08] MEDS ORDERED: Vancomycin (wt based) 1,000 MG VIAL IVPB SCH (08:00)
[2019-03-08 09:31] LABS: Hematocrit 31.9 % (37.5-50.1); Hemoglobin 10.2 g/dL (12.9-16.9); Mean Corpuscular Hemoglobin 30.6 pg (28.0-33.3); Mean Corpuscular Volume 95.8 fL (83.0-100.0); Mean Platelet Volume 9.4 fL (9.4-12.4); Platelet Count 113 K/mcL (140-400); Red Blood Count 3.33 M/mcL (4.19-5.50); Red Cell Distribution Width 14.2 % (11.5-14.5)
[2019-03-08] MEDS: 0.9 % Sodium Chloride 1,000 ML IVC SCH ×2 (09:32→21:33)
[2019-03-08] MEDS: Piperacillin/Tazobactam 3.375 GM in 0.9 % Sodium Chloride Mini Bag 100 ML IVPB SCH ×2 (09:33→16:54)
[2019-03-08 09:45] LABS: BUN/Creatinine Ratio 18 (6-26); Blood Urea Nitrogen 25 mg/dL (8-23); Calcium 8.1 mg/dL (8.6-10.3); Carbon Dioxide 20 mEq/L (23-29); Chloride 110 mEq/L (98-107); Glucose 120 mg/dL (70-105); Osmolality,Calculated 284 (280-300); Phosphorous 3.2 mg/dL (2.7-4.5); Potassium 4.3 mEq/L (3.5-5.1); Sodium 134 mEq/L (136-145); eGFR For Non-African Americans 51 (> 60)
[2019-03-08 09:51] LABS: Lymphocytes # 0.2 K/mcL (0.6-4.6); Monocytes # 0.8 K/mcL (0.0-1.3); Neutrophils # 6.5 K/mcL (1.6-8.9); Platelet Estimate Slight Decrease (Normal)
[2019-03-08] MEDS: *HR* Heparin 5,000 UNIT/ML VIAL SQ SCH ×2 (14:57→22:00)
--- NOTE | 2019-03-08 15:55 | Oncology Inp Consult Note ---
<VitalyCraigCamille S - Last Filed: 03/08/19 18:53> Date of Encounter: 03/08/19 Time of Encounter: 17:16 - Data of Consult Requesting Physician: Adriel Ortiz MD Primary Care Provider: Samantha Conti MD Medications and Allergies Quinapril HCl [Accupril] 10 mg PO DAILY 11/14/15 [History] Cyanocobalamin (B-12) [Vitamin B12] 1,000 mcg PO DAILY #30 tablet 01/16/16 [Rx] Ergocalciferol (VITAMIN D2) [Vitamin D2] 4,000 unit PO DAILY 09/13/18 [History] Cetirizine HCl [Zyrtec] 10 mg PO DAILY 03/08/19 [History] Fluticasone Propionate Nasal [Flonase] 2 spray NS DAILY 03/08/19 [History] Montelukast [Singulair] 10 mg PO DAILY 03/08/19 [History] Ondansetron HCl 4 mg PO Q6H PRN 03/08/19 [History] raNITIdine HCl [Ranitidine HCl] 150 mg PO BID 03/08/19 [History] Allergy/AdvReac Type Severity Reaction Status Date / Time egg Allergy Difficulty Verified 03/08/19 09:15 Breathing iodine Allergy Difficulty Verified 03/08/19 09:15 Breathing shellfish derived Allergy See Verified 03/08/19 09:15 Comments Consult Discharge Plan - Plan Referrals: Samantha Conti MD [Primary Care Provider] - Inpatient Charges Provider: Dr. Karthik Haider Consult - Inpatient: [id number] - Attending Attestation I examined this patient and my medical decision-making was reviewed with the Advanced Practice Nurse. I agree with the documented findings, disposition and treatment plan as described except to the extent set forth below. 1. Sepsis. Patient admitted with fever to 102.7. Blood cultures pending. Some IV antibiotics. He is not neutropenic with neutrophil count around 6400 2. Non-Hodgkin's lymphoma/lymphoplasmacytic lymphoma. Finished 4 cycles of bendamustine and Obinituzumab 02/23/2019. Chemotherapy is less likely to have contributed to his sepsis. We are not planning further chemotherapy at this time 3. Recurrent squamous cell carcinoma skin area post reexcision 03/07/2019 from anterior chest wall. Tissue necrosis from surgery could have contributed to some fever. Overall his fever nausea vomiting have improved today. <Daisy Bass - Last Filed: 03/08/19 19:09> Date of Encounter: 03/08/19 Assessment and Plan (1) Malignant lymphoplasmacytic lymphoma Status: Chronic Assessment and plan: Non-Hodgkin's lymphoma/lymphoplasmacytic lymphoma. Finished 4 cycles of bendamustine and Obinituzumab 02/23/2019. Not planning further chemotherapy at this time Further treatment recommendations as outpatient (2) Sepsis Status: Acute Assessment and plan: Patient meeting sepsis criteria on presentation, febrile with TMAX 102.7. Blood cultures pending. Empirically on vanc and zosyn-treating for potential chest wall cellulites following repeat resection of squamous cell carcinoma yesterday He also reports nausea, vomiting, diarrhea with stool culture pending He is not neutropenic at this time and therefore no indication for neupogen Last treatment Obinutuzumab 02/23/2019 Qualifiers: Sepsis type: sepsis due to unspecified organism Qualified Code(s): A41.9 - Sepsis, unspecified organism - Data of Consult Patient: known to practice within the last 3 years Consult date: 03/08/19 Requesting Physician: Adriel Ortiz MD Primary Care Provider: Samantha Conti MD - Consult Narrative Reason for consult: Lymphoplasmacytic lymphoma History of present illness: Mr. Craft is a 68 year old male with Lymphoplasmacytic lymphoma. 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 Treatment summary as below. 1.Rituximab 375 mg per meter squared weekly 4 doses completed 03-28-14 2. Disease progression 09/06/2018 with increase in LILIANA 3. Bone marrow biopsy on 10/29/2018 showed 50% bone marrow involvement with lymphoplasmocytic lymphoma. 4. Palliative intent Bendamustine x2 cycles started 11/15/2018 5. Rituxan Cycle 1 11/15/2018, he had an allergic reaction to rituximab, from cycle 3 rituximab was switched to Obinituzumab 1 g IV day 1. Completed 4 cycles on 02/23/2019. Course was complicated by neutropenia. 6. Cycle 2 Obinituzumab 02/23/2019 He presented to [facility] for acute onset fever, weakness, nausea, vomiting, and diarrhea since yesterday evening. Patient initially had a squamous cell carcinoma skin lesion removed from his anterior chest removed in November 2018, this incision site was further resected yesterday morning by Dr. Diallo [facility] surgeon due to rapid recurrence of the lesion. Patient reports associated pain at the incision site and developed a fever temperature 103 F after the procedure. He tried Tylenol at home without relief. He has been started on vanc and zosyn. Past Med Surg Social Fam HX - Past Medical History Medical history: arthritis, cancer, diabetes, GERD, hypertension Psychiatric history: no psych history - Past Surgical History Surgical History: orthopedic, other Additional surgical history: sinus sx, - Social History Smoking Status: Former smoker Smokeless Tobacco Status: No Alcohol use: none Drug use: none - Family History Mother Living Status: Father Living Status: Hx Family Cardiac Disorders: Yes Constitutional: Present: chills, fatigue, fever(s), malaise. Absent: anorexia, weight loss Eyes: Absent: change in vision Nose, mouth and throat: Absent: dysphagia, odynophagia Cardiovascular: Absent: chest pain Additional comments: pain to incision on anterior chest Respiratory: Absent: cough, dyspnea Gastrointestinal: Present: diarrhea, nausea, vomiting. Absent: abdominal pain, hematochezia, melena Genitourinary: Absent: dysuria Musculoskeletal: Present: muscle weakness Integumentary: Present: as per HPI. Absent: rash, wounds Neurological: Absent: focal weakness, headache(s) Psychiatric: Present: as per HPI Hematologic/Lymphatic: Present: as per HPI Oncology - Exam - Constitutional General appearance: cooperative, no acute distress, no febrile - Head Head exam: Present: atraumatic - ENT ENT exam: Present: mucous membranes dry, normal oropharynx - Respiratory Respiratory exam: Present: CTAB. Absent: respiratory distress - Cardiovascular Cardiovascular exam: Present: RRR - GI/Abdominal GI/Abdominal exam: Present: normal bowel sounds, soft. Absent: tenderness - Extremities Exam Extremities exam: Present: normal inspection. Absent: calf tenderness - Neurological Exam Neurological exam: Present: alert, oriented X3, no focal deficits, strengths equal and symetr throughout - Psychiatric Psychiatric exam: Present: normal affect, normal mood - Skin Skin exam: Present: dry, intact, normal color, warm Additional comments: significant tenderness to anterior chest wall incision, no erythema or drainage noted on observed skin, gauze dressing intact, he has significant pain with any movement of dressing
--- NOTE | 2019-03-08 17:33 | Electrocardiograph Report ---
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
[2019-03-09] MEDS: Piperacillin/Tazobactam 3.375 GM in 0.9 % Sodium Chloride Mini Bag 100 ML IVPB SCH ×4 (00:49→23:44)
[2019-03-09] MEDS: Acetaminophen 325 MG TABLET PO PRN ×3 (03:31→20:51)
[2019-03-09] MEDS: *HR* Heparin 5,000 UNIT/ML VIAL SQ SCH ×4 (05:31→23:44)
[2019-03-09 10:50] LABS: Hematocrit 30.8 % (37.5-50.1); Hemoglobin 9.8 g/dL (12.9-16.9); Lymphocytes # 0.3 K/mcL (0.6-4.6); Mean Corpuscular HGB Conc 31.8 g/dL (31.6-35.5); Mean Corpuscular Hemoglobin 30.8 pg (28.0-33.3); Mean Corpuscular Volume 96.9 fL (83.0-100.0); Mean Platelet Volume 9.7 fL (9.4-12.4); Platelet Count 108 K/mcL (140-400); Red Blood Count 3.18 M/mcL (4.19-5.50); Red Cell Distribution Width 14.6 % (11.5-14.5)
[2019-03-09 11:10] LABS: BUN/Creatinine Ratio 15 (6-26); Blood Urea Nitrogen 17 mg/dL (8-23); Carbon Dioxide 22 mEq/L (23-29); Chloride 106 mEq/L (98-107); Glucose 162 mg/dL (70-105); Osmolality,Calculated 283 (280-300); Sodium 134 mEq/L (136-145); eGFR For Non-African Americans > 60 (> 60)
[2019-03-09 11:24] LABS: Eosinophils # 0.3 K/mcL (0.0-0.6); Monocytes # 0.4 K/mcL (0.0-1.3); Neutrophils # 4.2 K/mcL (1.6-8.9); Platelet Estimate Slight Decrease (Normal)
[2019-03-09 11:25] LABS: Reactive Lymphocytes Present (Not Present)
--- NOTE | 2019-03-09 16:12 | Internal Med Progress Note ---
Hospitalist Progress Note - Encounter Date of Encounter: 03/09/19 Time of Encounter: 16:12 - Subjective Interval History: Patient evaluated earlier today. Lying Down in bed. Comfortable. Feels much better today. No new episodes of nausea vomiting or diarrhea. No dizziness or lightheadedness. - Exam Vitals: Temp Pulse Resp BP Pulse Ox 100.5 F H 80 15 137/82 97 03/09/19 15:30 03/09/19 13:52 03/09/19 13:52 03/09/19 13:52 03/09/19 13:52 Exam: General: Patient is alert, no acute distress, oriented x 3 Respiratory: Good respiratory effort. Normal breath sounds. No wheezing or crackles. Cardiovascular: Regular rate and rhythm. s1 and s2 normal No clicks, rubs, gallops, or murmurs. No pedal edema Abdomen: Abdomen is soft, nontender. Bowel sounds are present Musculoskeletal: Spontaneously moving all extremities Skin: warm, dry, intact. Chest wound bandaged. Less tender today. Neuro: Alert oriented x 3 normal cranial nerves, no focal deficits - Assessment and Plan (1) Sepsis Current Visit: Yes Status: Acute Assessment and Plan: Continue current antibiotics. Sepsis resolving. Blood cultures negative so far. (2) Cellulitis Current Visit: Yes Status: Suspected Assessment and Plan: Continue antibiotics. Failure appears to be subsiding. Clinically also patient's symptoms are improving. Possible discharge tomorrow if he continues to improve. 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 (4) DVT prophylaxis Current Visit: Yes Status: Acute Assessment and Plan: Continue subcutaneous heparin (5) MEG (acute kidney injury) Current Visit: Yes Status: Resolved Assessment and Plan: Now resolved. (6) Hypophosphatemia Current Visit: Yes Status: Resolved (7) Hypertension Current Visit: Yes Status: Chronic Assessment and Plan: Blood pressure is well controlled at this time. (8) Diabetes mellitus type 2 in nonobese Current Visit: Yes Status: Chronic Assessment and Plan: Well-controlled. - Time Spent with Patient Total time spent is greater than 50% in coordination of care (as documented) at patient's floor/unit and/or counseling patient: Internal Medicine: Result - Labs CBC & Chem 7: 03/09/19 10:21 03/09/19 10:21 Labs: Short CBC 03/09/19 Range/Units 10:21 WBC 5.2 (4.3-11.1) K/mcL Hgb 9.8 L (12.9-16.9) g/dL Hct 30.8 L (37.5-50.1) % Plt Count 108 L (140-400) K/mcL Neutrophils # 4.2 (1.6-8.9) K/mcL BMP 03/09/19 10:21 Sodium 134 L Potassium 4.0 Chloride 106 Carbon Dioxide 22 L BUN 17 Creatinine 1.16 Glucose 162 H Calcium 9.0 - ABG Interpretation ABG results: ABG ABG pH 7.36 pH Units (7.32-7.45) 03/08/19 05:12 ABG pCO2 34 mmHg (35-45) L 03/08/19 05:12 ABG pO2 86 mmHg (85-104) 03/08/19 05:12 ABG O2 Saturation 96 % (95-98) 03/08/19 05:12 PT/INR, D-dimer PT 12.3 Seconds (9.4-12.1) H 03/08/19 01:59 Consult Discharge Plan - Plan Referrals: Samantha Conti MD [Primary Care Provider] - (1) Sepsis Qualifiers: Sepsis type: sepsis due to unspecified organism Qualified Code(s): A41.9 - Sepsis, unspecified organism (2) Cellulitis Qualifiers: Site of cellulitis: trunk Site of cellulitis of trunk: chest wall Qualified Code(s): L03.313 - Cellulitis of chest wall (7) Hypertension Qualifiers: Hypertension type: essential hypertension Qualified Code(s): I10 - Essential (primary) hypertension
[2019-03-10] MEDS: *HR* Heparin 5,000 UNIT/ML VIAL SQ SCH (03:57)
[2019-03-10] MEDS: Acetaminophen 325 MG TABLET PO PRN (04:06)
[2019-03-10] MEDS: Piperacillin/Tazobactam 3.375 GM in 0.9 % Sodium Chloride Mini Bag 100 ML IVPB SCH (08:00)
--- NOTE | 2019-03-10 14:21 | Discharge Summary ---
- NOTES TO OUTPATIENT PROVIDER Notes to Outpatient Provider: Patient will follow up with dermatology after discharge for removal of sutures and reevaluation of chest wall lesion. Orders not resulted at time of discharge: Pending orders 03/08/19 01:59 Culture,Blood [BC] Stat 03/10/19 14:00 Vancomycin,Trough Timed Date of Encounter: 03/10/19 Time of Encounter: 14:21 - Discharge Diagnosis (1) Sepsis Priority: Primary Status: Acute Qualifiers: Sepsis type: sepsis due to unspecified organism Qualified Code(s): A41.9 - Sepsis, unspecified organism (2) Cellulitis Priority: Secondary Status: Suspected Qualifiers: Site of cellulitis: trunk Site of cellulitis of trunk: chest wall Qualified Code(s): L03.313 - Cellulitis of chest wall (3) Malignant lymphoplasmacytic lymphoma Priority: Secondary Status: Chronic (4) DVT prophylaxis Priority: Secondary Status: Acute (5) MEG (acute kidney injury) Priority: Secondary Status: Resolved (6) Hypophosphatemia Priority: Secondary Status: Resolved (7) Hypertension Priority: Secondary Status: Chronic Qualifiers: Hypertension type: essential hypertension Qualified Code(s): I10 - Essential (primary) hypertension (8) Diabetes mellitus type 2 in nonobese Priority: Secondary Status: Chronic Hospital course: Mr. Craft is a 68 year old male patient with history of diabetes, hypertension, malignant lymphoplasmacytic lymphoma currently on chemotherapy was hospitalized here after presenting with complaints of fevers following dermatologic procedure to remove a squamous cell carcinoma skin lesion from his anterior chest. Patient was admitted for sepsis from cellulitis and treated with IV antibiotics. He continued to have fever overnight and then eventually his fevers have subsided. Blood cultures have been negative. Clinically he is doing better. He still has erythema over his chest wall pain and tenderness have improved. He has not had any further episodes of fever since yesterday afternoon. At this time is clinically stable for discharge. I did discuss his plan of care with dermatology and they will evaluate him at his next appointment in 2 weeks. 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 Patient will be discharged on doxycycline and Augmentin to complete treatment for cellulitis. Discharge discussed with: patient, family - Time Spent with Patient Total time spent providing and/or coordinating discharge services: Time spent: Greater than 30 minutes (40 min) - Discharge Medications Prescriptions: New Amoxicillin/Clavulanate [Augmentin] 875 mg PO BIDWM #14 tablet Doxycycline Hyclate 100 mg PO BID #14 tablet Continued Quinapril HCl [Accupril] 10 mg PO DAILY Cyanocobalamin (B-12) [Vitamin B12] 1,000 mcg PO DAILY #30 tablet Ergocalciferol (VITAMIN D2) [Vitamin D2] 4,000 unit PO DAILY Cetirizine HCl [Zyrtec] 10 mg PO DAILY Fluticasone Propionate Nasal [Flonase] 2 spray NS DAILY Montelukast [Singulair] 10 mg PO DAILY Ondansetron HCl 4 mg PO Q6H PRN PRN Reason: NAUSEA/VOMITING raNITIdine HCl [Ranitidine HCl] 150 mg PO BID Home Medications: Quinapril HCl [Accupril] 10 mg PO DAILY 11/14/15 [History] Cyanocobalamin (B-12) [Vitamin B12] 1,000 mcg PO DAILY #30 tablet 01/16/16 [Rx] Ergocalciferol (VITAMIN D2) [Vitamin D2] 4,000 unit PO DAILY 09/13/18 [History] Cetirizine HCl [Zyrtec] 10 mg PO DAILY 03/08/19 [History] Fluticasone Propionate Nasal [Flonase] 2 spray NS DAILY 03/08/19 [History] Montelukast [Singulair] 10 mg PO DAILY 03/08/19 [History] Ondansetron HCl 4 mg PO Q6H PRN 03/08/19 [History] raNITIdine HCl [Ranitidine HCl] 150 mg PO BID 03/08/19 [History] Amoxicillin/Clavulanate [Augmentin] 875 mg PO BIDWM #14 tablet 03/10/19 [Rx] Doxycycline Hyclate 100 mg PO BID #14 tablet 03/10/19 [Rx] Allergies/Adverse Reactions: Allergy/AdvReac Type Severity Reaction Status Date / Time egg Allergy Difficulty Verified 03/08/19 09:15 Breathing iodine Allergy Difficulty Verified 03/08/19 09:15 Breathing shellfish derived Allergy See Verified 03/08/19 09:15 Comments Date of admission: 03/08/19 10:23 Primary care physician: Samantha Conti MD Consults: 03/08/19 10:40 Consult to Oncology Hematology [CONS] Routine Consulting Provider: Camille Haider Reason for Consult: Patient with sepsis, unknown etiology. He is on palliative chemotherapy (Obinituzumab). Completed 4 cycles on 02/23/2019. Time Notified: 10:41 Call Completed: Yes Discharging clinician: Rio Cowan Anticipated date of discharge: 03/10/19 - Constitutional Vitals: Temp Pulse Resp BP Pulse Ox 98 F 72 16 133/80 99 03/10/19 11:08 03/10/19 11:08 03/10/19 11:08 03/10/19 11:08 03/10/19 11:08 General appearance: Present: cooperative, A&O X 3, pleasant, no acute distress, answers questions appropriately Exam: General: Patient is alert, no acute distress, oriented x 3 ENT: Mucous membranes moist Respiratory: Good respiratory effort. Normal breath sounds. No wheezing or crackles. Cardiovascular: Regular rate and rhythm. s1 and s2 normal No clicks, rubs, gallops, or murmurs. No pedal edema Abdomen: Abdomen is soft, nontender. Bowel sounds are present Musculoskeletal: Spontaneously moving all extremities Skin: warm, dry, intact. Erythema noted over his anterior chest wall around surgical incision. Mildly tender to palpation. No discharge noted. Neuro: Alert oriented x 3 normal cranial nerves, no focal deficits - Patient Status Disposition: Home, Self-Care Condition: Good Functional capacity at discharge: independent ambulation Overall status at discharge: patient is progressing back to baseline - Discharge Instructions Follow Up With: Samantha Conti MD [Primary Care Provider] - (In 1 week) Jermaine Diallo MD [Partnered Physician] - (In 1-2 weeks) - Diet and Activity Activity: increase activity as tolerated Diet: advance to your usual diet, diabetic diet, low fat, low cholesterol, low salt diet
[2019-03-10 14:27] VITALS: BP 135/82
--- NOTE | 2019-03-10 21:59 | Electrocardiograph Report ---
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
== END 2019-03-10 15:43 | disposition home or self-care (01) | DRG 872 ==
LOC: 2SOUTHHOLD 01:00 → EMEROOARM 01:00 → 2SOUTHHOLD 04:56 → SUATTDRO 10:23 → 3ANU 17:56
PROVIDERS: ADMIT Internal Medicine; ATTEND Internal Medicine